=== PATIENT | male | born 1960 | race Two or more races ===

== ENCOUNTER 2021-07-07 17:28 | Emergency (ER) | payer OTHER ==
[~2021-07-07] VITALS: Ht 172.7 cm; Wt 70.3 kg
--- NOTE | 2021-07-07 17:28 | NUR ---
PT KAREN CHEW FROM [facility]HAV[facility] TOWARDS STAFF. ON 5150 HOLD BY JEEVAN. PT IS AAOX3, NOT IN RESPIRAOTRY DISTRESS, HOOKED TO BELT SANDER, KEPT RESTED AND COMFORTABLE. WILL CONTINUE TO MONITOR.
--- NOTE | 2021-07-07 17:28 | NUR ---
PT KAREN CHEW FROM [facility] TOWARDS STAFF. ON 5150 HOLD BY JEEVAN. PT IS AAOX3, NOT IN RESPIRAOTRY DISTRESS, HOOKED TO FITTING ROOM OPERATOR, KEPT RESTED AND COMFORTABLE. WILL CONTINUE TO MONITOR.
--- NOTE | 2021-07-07 17:45 | NUR ---
URINE SPECIMEN COLLECTED AND SENT TO LAB.
--- NOTE | 2021-07-07 17:45 | NUR ---
URINE SPECIMEN COLLECTED AND SENT TO LAB.
--- NOTE | 2021-07-07 17:52 | NUR ---
ER PHLEB AT BEDSIDE FOR BLOOD DRAW.
--- NOTE | 2021-07-07 17:52 | NUR ---
ER PHLEB AT BEDSIDE FOR BLOOD DRAW.
[2021-07-07 18:10] LABS: BASOPHILS % (AUTO) 0.5 % (0.0-2.0); EOSINOPHILS % (AUTO) 0.3 % (0.0-6.0); HEMATOCRIT 43 % (39-51); HEMOGLOBIN 14.7 g/dL (13.5-17.5); LYMPHOCYTES # (AUTO) 1.6 K/uL (0.8-4.8); MEAN CORPUSCULAR HGB CONC 35 g/dl (31.0-36.0); MEAN CORPUSCULAR VOLUME 94 fL (80-96); MONOCYTES # (AUTO) 0.5 K/uL (0.1-1.30); MONOCYTES % (AUTO) 5.7 % (2.0-12.0); NEUTROPHILS # (AUTO) 7.3 K/uL (1.8-8.9); NEUTROPHILS % (AUTO) 76.5 % (43.0-81.0); PLATELET COUNT (AUTO) 330 K/uL (150-450); RED BLOOD CELL COUNT(AUTO) 4.53 MIL/uL (4.5-6.0); WHITE BLOOD COUNT (AUTO) 9.6 K/uL (4.3-11.0)
[2021-07-07 18:37] LABS: ALANINE AMINOTRANSFERASE 23 U/L (12-78); ALBUMIN 3.8 g/dL (3.4-5.0); ALKALINE PHOSPHATASE 78 U/L (46-116); ASPARTATE AMINOTRANSFERASE 24 U/L (15-37); BILIRUBIN,DIRECT 0.1 mg/dL (0.0-0.2); BILIRUBIN,TOTAL 0.4 mg/dL (0.2-1.0); CALCIUM, SERUM 8.6 mg/dL (8.5-10.1); CARBON DIOXIDE 24 mmol/L (21-32); CHLORIDE 106 mmol/L (98-107); GLUCOSE 115 mg/dL (74-106); POTASSIUM 3.9 mmol/L (3.5-5.1); SODIUM SERUM 140 mmol/L (136-145); TOTAL PROTEIN, SERUM 7.9 g/dL (6.4-8.2); UREA NITROGEN, BLOOD 18 mg/dL (7-18)
[2021-07-07 18:53] LABS: ACETAMINOPHEN 0 ug/ml (10-30); ALCOHOL, BLOOD < 3 mg/dL (0-0)
[2021-07-07] MEDS ORDERED: BENAZEPRIL HCL 10 MG TABLET PO ONE (19:00)
[2021-07-07] MEDS ORDERED: AMLODIPINE BESYLATE 5 MG TABLET PO ONE (19:00)
[2021-07-07 19:13] LABS: BILIRUBIN,URINE NEGATIVE (NEGATIVE); COLOR,URINE YELLOW (YELLOW); LEUKOCYTE ESTERASE ,URINE NEGATIVE (NEGATIVE); NITRITE, URINE NEGATIVE (NEGATIVE); PH,URINE 5.5 (5.0-8.0); PROTEIN,URINE TRACE mg/dl (NEGATIVE); UGLUCOSE NEGATIVE (NEGATIVE); UROBILINOGEN,URINE 0.2 EU/dL (0.2)
--- NOTE | 2021-07-07 19:33 | NUR ---
COVID SAMPLE OBTAINED AND SENT TO LAB
--- NOTE | 2021-07-07 19:33 | NUR ---
COVID SAMPLE OBTAINED AND SENT TO LAB
[2021-07-07 19:41] LABS: BACTERIA,URINE None seen /HPF (None Seen); RBC,URINE 0-2 /HPF (0-2); SQUAMOUS EPITHELIAL CELL,UR None Seen /HPF (None Seen); URINE AMORPHOUS URATE Few /HPF (None Seen); WBC,URINE 0-2 /HPF (0-3)
[2021-07-07] MEDS ORDERED: OLANZAPINE 10 MG VIAL IM ONE ×3 (20:35→23:44)
[2021-07-07] MEDS ORDERED: AMLODIPINE BESYLATE 10 MG TABLET ONE (21:26)
[2021-07-07] MEDS ORDERED: BENAZEPRIL HCL 10 MG TABLET ONE (21:26)
[2021-07-07] MEDS ORDERED: diphenhydrAMINE HCL 50 MG/ML VIAL ONE (23:43)
[2021-07-07] MEDS ORDERED: LORAZEPAM INJ 2 MG/ML VIAL ONE (23:44)
[2021-07-08] MEDS ORDERED: LORAZEPAM INJ 2 MG/ML VIAL IM ONE
[2021-07-08] MEDS ORDERED: OLANZAPINE 10 MG VIAL IM ONE
[2021-07-08] MEDS ORDERED: diphenhydrAMINE HCL 50 MG/ML VIAL IM ONE
[2021-07-08] MEDS ORDERED: HALOPERIDOL LACTATE INJ 5 MG/ML VIAL ONE (01:34)
[2021-07-08] MEDS ORDERED: HALOPERIDOL LACTATE INJ 5 MG/ML VIAL IM ONE (02:00)
--- NOTE | 2021-07-08 08:38 | NUR ---
CALLED PREVIOUS CRISIS CLINICKATIE WALLACE, ON THE CASE TO SEE IF SHE CAN RE EVALUATE Addendum: 07/08/21 at 0840 by WILD CALLED PREVIOUS CRISIS CLINICKATIE WALLACE, ON THE CASE TO SEE IF SHE CAN RE EVALUATE AND LEFT VOICEMAIL
--- NOTE | 2021-07-08 08:48 | NUR ---
KATIE CALLED BACK AND HOLD WILL NOT BE BROKEN. POWDER SHOVELER NEEDS TO BE CALLED TO OBTAIN INSURANCE AND HAVE PT ADMITTED UPSTAIRS
--- NOTE | 2021-07-08 08:48 | NUR ---
KATIE CALLED BACK AND HOLD WILL NOT BE BROKEN. GROUNDS MAINTENANCE SUPERVISOR NEEDS TO BE CALLED TO OBTAIN INSURANCE AND HAVE PT ADMITTED UPSTAIRS
--- NOTE | 2021-07-08 08:56 | NUR ---
CALL [phone] FOR DIRECTOR INVESTOR RELATIONS AND THEN [phone]
--- NOTE | 2021-07-08 08:56 | NUR ---
CALL [phone] FOR SAWSMITH AND THEN [phone]
--- NOTE | 2021-07-08 10:00 | NUR ---
RV SERVICER WAS AT BEDSIDE
--- NOTE | 2021-07-08 10:00 | NUR ---
MEAT STUFFER WAS AT BEDSIDE
--- NOTE | 2021-07-08 10:23 | NUR ---
URI attempted to interview pt. Pt. refused to provide his social. Pt. stated that the facility he was staying at is called "[facility]" [no address provided]. Pt. was being aggressive and said he does not want to get admitted to [facility]. URI updated Ann Marie from crisis.
--- NOTE | 2021-07-08 10:57 | NUR ---
Pt. was willing to provide his social. SW contact Elan to see if pt. meets criteria for [facility].
--- NOTE | 2021-07-08 10:57 | NUR ---
Pt. was willing to provide his social. SW contact Elan to see if pt. meets criteria for [facility].
--- NOTE | 2021-07-08 13:34 | NUR ---
Will call Art from [facility] to come and break the hold.
--- NOTE | 2021-07-08 13:34 | NUR ---
Will call Art from [facility] to come and break the hold.
--- NOTE | 2021-07-08 15:37 | NUR ---
Art stated that pt. is able to go back to [facility] [[facility]] [address] [place] [address]. Art mentioned that transportation is set up.
--- NOTE | 2021-07-08 15:37 | NUR ---
Art stated that pt. is able to go back to [facility] [[facility]] [address] [place] [address]. Art mentioned that transportation is set up.
--- NOTE | 2021-07-08 16:00 | NUR ---
TRANSPORTED [facility]IA [facility] BACK TO SNF IN STABLE CONDITION.
--- NOTE | 2021-07-08 16:00 | NUR ---
TRANSPORTED [facility]IA [facility] BACK TO SNF IN STABLE CONDITION.
[2021-07-08 18:17] VITALS: BP 135/84
== END 2021-07-08 18:18 ==
LOC: ER 17:36
DX: F29 Unspecified psychosis not due to a substance or known physiological condition (principal); I10 Essential (primary) hypertension; Z20.822 Contact with and (suspected) exposure to COVID-19; E11.9 Type 2 diabetes mellitus without complications; R94.31 Abnormal electrocardiogram [ECG] [EKG]
CPT/HCPCS: 36415; 80048; 80076; 80143; 80307; 80320; 81001; 83735; 85025; 87426; 93005; 96372 ×2; 99285; C9803; J1200; J1630; J2060; J3490 ×2; G0480